=== PATIENT | male | born 1940 | race Caucasian/White ===

== ENCOUNTER → 2016-10-22 | Outpatient (CLI) | payer BC ==
[~2016-10-22] MED LIST: ALBU1AER9 INH; ALLO100T PO; ALPR0.25 PO; AMLH/550 PO; AMOX500C3 PO; ANT25 PO; ASCO10003 PO; ASPI81TA25 PO; CARB0.5D28 OPB; EPP3/2 IM; FEXO1TAB49 PO; FINA5TAB4 PO; FLUT0.15 NAE; MECL1TAB42 PO; METH500T3 PO; METR0.7527 TOP; MULTTAB58 PO; NIAC1TAB PO; OMEG10007 PO; POTA20TA16 PO; PRAV20TA2 PO; SULI200T4 PO
--- NOTE | 2016-10-22 10:40 | DIAGNOSTIC IMAGING REPORT ---
RENAL ULTRASOUND CLINICAL HISTORY: Right flank pain. COMPARISON STUDY: Renal ultrasound September 11, 2015 [place] TECHNIQUE: Sonography of the kidneys and the urinary bladder was performed. FINDINGS: The right kidney measures 11 x 5.3 x 4.6 cm and the left measures 12.3 x 5.7 x 5.6 cm. There is no hydronephrosis. Renal echogenicity, size and cortical thickness are within normal limits. No renal calculi or masses identified by sonography. The bladder suboptimally assessed due to underdistention. IMPRESSION: Unremarkable sonographic appearance of the kidneys. No hydronephrosis. Electronically signed by: Celio Lynn M.D. 10/22/2016 10:39 AM Dictated Date/Time: 10/22/2016 10:38 AM
== END | disposition home or self-care (01) ==
LOC: C.ULTR 10:04
PROVIDERS: ATTEND Internal Medicine
DX: R10.9 Unspecified abdominal pain (principal)

== ENCOUNTER → 2017-08-14 | Outpatient (CLI) | payer BC ==
[~2017-08-14] MED LIST changes: +ASPCH81X PO; +DIPH25CA5 PO; +FLUO0.0566 TOP; +HYDR2.5O TOP; +KETO0.0216 OP; +MELATAB2 PO
[2017-08-14 13:28] LABS: PARTIAL THROMBOPLASTIN RATIO 1.2; PROTHROMBIN TIME (PATIENT) 10.7 SECONDS (9.0-12.0)
== END | disposition home or self-care (01) ==
LOC: C.LAB 12:18
PROVIDERS: ATTEND Physician Assistant
DX: I35.0 Nonrheumatic aortic (valve) stenosis (principal)

== ENCOUNTER → 2017-08-19 | Day surgery (SDC) | payer BC ==
[~2017-08-19] VITALS: Ht 170.2 cm; Wt 91.0 kg
[~2017-08-19] MED LIST changes: +ACETAMINOPHEN 325 MG TAB PO PRN; +ATROPINE SULFATE 0.1 MG/ML 5ML SYR IV PRN; +FENTANYL CITRATE INJ 50 MCG/1 ML 2 ML VIAL ONE; +HEPARIN SOD (PORCINE) 1000 UNIT/ML 10 ML VIAL ONE; +MIDAZOLAM HCL 1 MG/ML 2ML VIAL ONE; +NITROGLYCERIN 0.4 MG SL PER TAB CHARGE SL PRN; +NITROGLYCERIN/D5W 100MCG/ML 20ML SYR ONE; +NiCARDipine HCL INJ 2.5 MG/ML 10 ML AMP ONE; +SODIUM CHLORIDE 0.9% 1000ML 1,000 ML IV SCH; +SODIUM CHLORIDE 0.9% 1000ML 250 ML IV PRN
[2017-08-19 07:28] VITALS: Ht 170.2 cm; Wt 91.0 kg
[2017-08-19 07:29] VITALS: BP 135/59; PULSE 59; TEMP 36.6; O2SAT 98
--- NOTE | 2017-08-19 09:37 | History & Physical Bridge Note ---
H&P Re-Evaluation Bridge Note: I have examined the patient, reviewed the History & Physical and in the interval since the performance of the History & Physical I have noted the following changes of clinical significance: No changes noted
--- NOTE | 2017-08-19 12:24 | Discharge Instructions ---
Discharge Instructions Procedure Procedure Date: Aug 19, 2017. Reason for Visit: Severe Aortic Valve Stenosis * To Do. Discharge Discharge Date: Aug 19, 2017. Discharge Diagnosis: aortic stenosis Last Recorded Wt (Kilograms): 91 Anesthesia Post Anesthesia Instructions: If you have had General Anesthesia or IV Sedation: * Do not drive today. * Resume driving when surgeon permits. * Do not make important decisions or sign legal documents today. * Call surgeon for: 1. Temperature elevations greater than 101 degrees F. 2. Uncontrollable pain. 3. Excessive bleeding. 4. Persistent nausea and vomiting. 5. Medication intolerance (nausea, vomiting or rash). * For nausea and vomiting use only clear liquids such as: tea, soda, bouillon until nausea subsides, then gradually increase diet as tolerated. * If you have any concerns or questions, call your surgeon's office. If physician is unavailable and it is an emergency, call 911 or go to the nearest emergency room. Instructions Activity Recommendations: limitations as noted below Recommended Home Diet: resume previous diet Allergies: Coded Allergies: No Known Allergies (Unverified , 01/10/16) Follow Up Additional Instructions: ACTIVITY RECOMMENDATIONS: Excess manipulation of the wrist should be avoided for the next 24-48 hours. * No lifting over 2 pounds (approximately a 1/2 gallon of milk) with the utilized arm for 24 hours. * No strenuous activity such as bowling or tennis for 3 days. * Keep the site of the procedure covered with a bandage for 24 hours. *You may shower the day after the procedure. Do not take a tub bath or submerge the puncture site in water for the next 3 days. *Do not operate any motorized equipment for 3 days. SPECIAL CARE INSTRUCTIONS: The site may be slightly bruised and sore following your procedure. Should any of the following occur, contact the Dr. who performed your procedure. 1. Redness/inflammation, swelling, chills, or fever, or colored drainage at procedure site within 3-7 days after your procedure. 2. Coldness, discoloration, ongoing numbness, severe pain, or swelling. Expect mild tingling of hand and tenderness at the puncture site for up to three days. If this persists beyond three days, or other symptoms develop, notify the DrDevon who performed your procedure. BLEEDING: If the procedure site on your wrist begins to bleed, do not panic 1. Place 1 or 2 fingers firmly just slightly above the insertion site to stop the bleeding. You may be able to feel your pulse as you hold pressure. 2. Lift your finger after 5 minutes to see if the bleeding has stopped. 3. Once the bleeding has stopped, gently wipe the wrist area clean with a bandage. * If the bleeding from your wrist does not stop after 10 minutes, or if there is a large amount of bleeding or spurting, call 911 (do not drive yourself to the hospital). SKIN IRRITATION: * You may experience some redness and/or swelling in the area where radiation was administered. If any skin irritation occurs, please contact your family physician. FOLLOW UP VISIT: Keep any scheduled doctor appointments. Follow-up with: Dr Anderson as scheduled Lu Adkins Recommendations: Call your doctor if: * Temperature above 101 degrees * Pain not relieved by pain medicine ordered * There is increased drainage or redness from any incision * You have any unanswered questions or concerns. Your Doctors Instructions noted above were prepared by provider Jesse Guerrero. Patient Signature Section: Patient Instructions Signature Page Perry Snow Patient (or Guardian) Signature/Date: I have read and understand the instructions given to me by my caregivers. Caregiver/RN/Doctor Signature/Date: The above-named patient and/or guardian has received patient instructions on this date. + Original Patient Signature Page (only) stays with chart. Please make copy for patient.
[2017-08-19 12:30] VITALS: BP 128/65; PULSE 50; O2SAT 98
--- NOTE | 2017-08-20 11:05 | [facility] Post Operative Brief Note ---
Preliminary Procedure Note Procedure Date Aug 20, 2017. Pre-Procedure Diagnosis Valvular Disease AUC Score 7 Post-Procedure Diagnosis Moderate CAD Procedure(s) Performed Coronary Angiography, Aortography Celery Cutter Dr. Jesse Guerrero [employer](s) Imtiaz Plascencia Estimated Blood Loss <15 cc Medication(s) Fentanyl (12.5 mcg IV), Heparin (5000u IV), Nicardipine (250mcg intraarterial after sheath insertion), Versed (1mg IV), Lidocaine 1% (local infiltration) Preliminary Findings Heavily calcified aortic valve on fluoroscopy Right dominant coronary anatomy LM mild calcification LAD 40-50% mid vessel LADD1 moderate sized bifurcating vessel with 80% inferior branch LCX mild irregularities RCA mild irregularities Aortic with mild dilation Recommendations valve replacement Specimens None Fluids (cc crystalloids) 134 Anesthesia Start 0856 End 929 Procedural Complication(s) None Disposition [employer]/Recovery
--- NOTE | 2017-08-20 12:25 | CARDIAC CATH REPORT ---
REFERRING PHYSICIAN: Julian Gilliam PA-C. PROCEDURE: Coronary angiography, aortic root angiography. INDICATIONS: Severe aortic stenosis, preoperative assessment. BRIEF CARDIAC HISTORY: The patient is a 76-year-old male with progressive calcific aortic valve disease, increasing symptoms recently and valves already not reaching surgical severity by recent echocardiogram. He was referred for diagnostic cardiac catheterization. ACCESS: Right radial artery. CATHETERS: A 6-[place] long glide sheath, 5-[place] brachial 3.5, 5-[place] JL 3.5, 5-[place] JL4, 5-[place] JR5, 6-[place] 3DRC. IV CONTRAST: 141 mL of Visipaque. IV FLUIDS: 134 mL normal saline. RADIATION EXPOSURE: 10.7 minutes fluoroscopy, 559 milligrays, DAP score 3888. SEDATION: Start time 8:56, end time 9:35. MEDICATIONS: Versed 1 mg IV, fentanyl 12.5 mcg IV. Local infiltration of access site with 1% Lidocaine Heparin 5000U IV Nicardipine 250 mcg intraarterial after sheath insertion MONITORING NURSE: Kylee Black RN. COMPLICATIONS: None. PROCEDURAL NOTES: There is moderate tortuosity of the proximal right subclavian with limited torque ability of catheters, though adequate access was gained with catheter use. RESULTS: Fluoroscopy of the aortic valve was heavy calcification of the valve leaflets with restricted mobility. CORONARY ANGIOGRAPHY: 1. Left main: Left main is relatively short and trifurcates to give rise to a tiny ramus intermedius, a moderately large type 3 left anterior descending and a large circumflex. Within the left main, there is no disease. 2. Left anterior descending: Left anterior descending is type 3 in distribution and gives rise to a moderately large bifurcating diagonal branch in its proximal third, then courses to terminate beyond the apex. Within the left anterior descending, there are mild diffuse luminal irregularities with a discrete 40%-50% narrowing at its mid vessel. The left anterior descending diagonal has disease at its level of bifurcation with disease extending into the origin of the inferior branch, narrowing it by 80% or greater. 3. Ramus intermedius: This is a trivial vessel and is free of disease. 4. Left circumflex: Left circumflex is large and consists of 2 marginal branches and a posterolateral branch. There are only mild luminal irregularities in the left circumflex. 5. Right coronary artery: The right coronary is large and dominant in distribution and gives rise to a right ventricular branch shortly after its origin and a posterior descending artery and posterior ventricular branch along the AV groove. There are mild irregularities in the right coronary artery most greatest in its proximal third. 6. LV angiography not performed. 7. Aortic root angiography: The aortic root was mildly dilated. There was mild aortic insufficiency. HEMODYNAMICS: Initial aortic root pressure was 99/44 with a mean of 65. Closing aortic root pressure was 99/49 with a mean of 69. FINAL IMPRESSION: 1. Heavy calcifications in the aortic valve on fluoroscopy. 2. Right dominant coronary anatomy. 3. Moderate coronary atherosclerosis with mild luminal irregularities of all vessels with a discrete 40%-50% narrowing within the mid left anterior descending and branch vessel narrowing of 80% with inferior branch of a bifurcating diagonal. 4. Mild aortic root dilatation. 5. Mild aortic insufficiency. [facility]
== END | disposition home or self-care (01) ==
LOC: C.CATH 06:49
PROVIDERS: ATTEND Internal Medicine Cardiovascular Disease
DX: I35.0 Nonrheumatic aortic (valve) stenosis (principal); I35.1 Nonrheumatic aortic (valve) insufficiency; R06.09 Other forms of dyspnea; R00.1 Bradycardia, unspecified; E78.5 Hyperlipidemia, unspecified; J45.909 Unspecified asthma, uncomplicated; N40.0 Benign prostatic hyperplasia without lower urinary tract symptoms; E66.9 Obesity, unspecified; M19.90 Unspecified osteoarthritis, unspecified site; Z87.442 Personal history of urinary calculi; Z80.42 Family history of malignant neoplasm of prostate; Z82.49 Family history of ischemic heart disease and other diseases of the circulatory system; Z79.82 Long term (current) use of aspirin

== ENCOUNTER → 2017-08-21 | Outpatient (CLI) | payer BC ==
[~2017-08-21] MED LIST changes: -ACETAMINOPHEN 325 MG TAB PO PRN; -ANT25 PO; -ATROPINE SULFATE 0.1 MG/ML 5ML SYR IV PRN; -FENTANYL CITRATE INJ 50 MCG/1 ML 2 ML VIAL ONE; -HEPARIN SOD (PORCINE) 1000 UNIT/ML 10 ML VIAL ONE; -MIDAZOLAM HCL 1 MG/ML 2ML VIAL ONE; -NITROGLYCERIN 0.4 MG SL PER TAB CHARGE SL PRN; -NITROGLYCERIN/D5W 100MCG/ML 20ML SYR ONE; -NiCARDipine HCL INJ 2.5 MG/ML 10 ML AMP ONE; -SODIUM CHLORIDE 0.9% 1000ML 1,000 ML IV SCH; -SODIUM CHLORIDE 0.9% 1000ML 250 ML IV PRN
[2017-08-21 15:16] LABS: ARTERIAL BLD GAS O2 SATURATION 92.2 % (90-95); ARTERIAL BLOOD GAS BASE EXCESS 1.6 mEq/L (-9-1.8); ARTERIAL BLOOD GAS HCO3 26 mmol/L (19-24); ARTERIAL BLOOD GAS PO2 63 mm/Hg (80-95); ARTERIAL BLOOD GAS pH 7.44 (7.35-7.45)
[2017-08-21 15:17] LABS: ALLEN TEST POS (POS); O2 ADMINISTRATION ROOM AIR
[2017-08-21 15:18] LABS: HEMATOCRIT 36.2 % (42-52); MEAN CELL VOLUME 87.4 fL (80-100); MEAN CORPUSCULAR HEMOGLOBIN 30.7 pg (25-34); MEAN CORPUSCULAR HGB CONC 35.1 g/dl (32-36); MEAN PLATELET VOLUME 9.2 fL (7.4-10.4); PLATELET COUNT 264 K/uL (130-400); RED BLOOD COUNT 4.14 M/uL (4.7-6.1); WHITE BLOOD COUNT 8.06 K/uL (4.8-10.8)
[2017-08-21 15:29] LABS: PROTHROMBIN TIME (PATIENT) 10.3 SECONDS (9.0-12.0)
[2017-08-21 15:52] LABS: ALT/SGPT 25 U/L (12-78); AST/SGOT 22 U/L (15-37); BLOOD UREA NITROGEN 23 mg/dl (7-18); BUN/CREATININE RATIO 22.9 (10-20); CALCIUM 8.9 mg/dl (8.5-10.1); CARBON DIOXIDE 25 mmol/L (21-32); CHLORIDE 104 mmol/L (98-107); GLUCOSE 88 mg/dl (70-99); POTASSIUM 4.1 mmol/L (3.5-5.1); SODIUM 135 mmol/L (136-145)
[2017-08-21 16:11] LABS: ALKALINE PHOSPHATASE 50 U/L (45-117); FERRITIN 266.6 ng/ml (8.0-388.0); TOTAL IRON BINDING CAPACITY 276 mcg/dl (250-450)
[2017-08-21 16:36] LABS: MANUAL MICROSCOPIC REQUIRED? NO; REVIEW REQ? NO; URINE APPEARANCE CLEAR (CLEAR); URINE BILIRUBIN NEG (NEG); URINE COLOR DK YELLOW; URINE NITRITE NEG (NEG); URINE PH 7.5 (4.5-7.5); URINE SPECIFIC GRAVITY 1.021 (1.000-1.030); UROBILINOGEN NEG (NEG)
[2017-08-22 06:37] LABS: ESTIMATED AVERAGE GLUCOSE 126 mg/dl; HA1C FLAG Normal (Normal)
== END | disposition home or self-care (01) ==
LOC: C.LAB 14:07
PROVIDERS: ATTEND Thoracic Surgery (Cardiothoracic Vascular Surgery)
DX: I35.0 Nonrheumatic aortic (valve) stenosis (principal); Z01.810 Encounter for preprocedural cardiovascular examination; I25.118 Atherosclerotic heart disease of native coronary artery with other forms of angina pectoris

== ENCOUNTER → 2017-09-15 | Outpatient (CLI) | payer BC ==
[~2017-09-15] MED LIST changes: +LPR25 PO; +LPT40 PO; +POTA-639 PO; -POTA20TA16 PO; +PSYL48.59 PO; +VNTHFA/IN INH; +WARF-246 PO; +WARF5TAB7 PO; +ZOLP5TAB PO
[2017-09-15 08:46] LABS: INR 1.7 (0.9-1.1)
== END ==
LOC: C.LABCC 08:22
PROVIDERS: ATTEND Internal Medicine
DX: I35.1 Nonrheumatic aortic (valve) insufficiency (principal)

== ENCOUNTER → 2017-09-22 | Outpatient (CLI) | payer BC ==
[~2017-09-22] MED LIST changes: -LPR25 PO; -LPT40 PO; -POTA-639 PO; +POTA20TA16 PO; -PSYL48.59 PO; -VNTHFA/IN INH; -WARF-246 PO; -WARF5TAB7 PO; -ZOLP5TAB PO
[2017-09-22 08:32] LABS: INR 1.9 (0.9-1.1)
== END ==
LOC: C.LABCC 07:51
PROVIDERS: ATTEND Internal Medicine
DX: I35.1 Nonrheumatic aortic (valve) insufficiency (principal)

== ENCOUNTER → 2017-09-30 | Outpatient (CLI) | payer BC ==
[2017-09-30 09:55] LABS: INR 2.3 (0.9-1.1)
== END ==
LOC: C.LABCC 08:36
PROVIDERS: ATTEND Internal Medicine
DX: Z95.2 Presence of prosthetic heart valve (principal)

== ENCOUNTER → 2017-10-08 | Outpatient (CLI) | payer BC ==
--- NOTE | 2017-10-16 08:56 | CODING QUERY NO DIAGNOSIS ---
TREATMENT RENDERED WITHOUT A DIAGNOSIS 39 To promote full compliance with coding requirements relating to patient care, physician participation is requested in all cases of manager hydraulic uncertainty. Please assist us with providing a diagnosis/symptom for the test(s) below: A diagnosis/symptom was not documented on your Order. A valid diagnosis/symptom is required to bill all insurances. Please remember that we are unable to code a diagnosis of rule out, probable, possible, questionable, or suspected. DOS 10/08/17 Tests that require a diagnosis: * PROTHROMBIN TIME DIAGNOSIS: Provider Signature: Date: Thank you Brianna Brink [employer] Information Management Once completed, please kindly fax back to [phone] For questions please call [phone]
== END | disposition home or self-care (01) ==
LOC: C.LAB 13:33
PROVIDERS: ATTEND Physician Assistant
DX: I48.91 Unspecified atrial fibrillation (principal)

== ENCOUNTER → 2017-10-14 | Outpatient (CLI) | payer BC ==
[2017-10-14 13:28] LABS: INR 3.4 (0.9-1.1)
== END | disposition home or self-care (01) ==
LOC: C.LAB 11:57
PROVIDERS: ATTEND Internal Medicine
DX: I48.0 Paroxysmal atrial fibrillation (principal)

== ENCOUNTER → 2017-10-21 | Outpatient (CLI) | payer BC | END | disposition home or self-care (01) | LOC: C.LAB 12:13 | PROVIDERS: ATTEND Physician Assistant | DX: I35.0 Nonrheumatic aortic (valve) stenosis (principal) ==

== ENCOUNTER → 2017-10-28 | Outpatient (CLI) | payer BC ==
[2017-10-28 13:18] LABS: INR 2.8 (0.9-1.1)
== END | disposition home or self-care (01) ==
LOC: C.LAB 12:06
PROVIDERS: ATTEND Physician Assistant
DX: I35.0 Nonrheumatic aortic (valve) stenosis (principal)

== ENCOUNTER → 2017-11-04 | Outpatient (CLI) | payer BC ==
[2017-11-04 16:38] LABS: BASO % 0.2 %; BASO ABS # 0.01 K/uL (0-0.2); EOS % 2.8 %; EOS ABS # 0.18 K/uL (0-0.5); HEMATOCRIT 32.8 % (42-52); IG# 0.03 K/uL (0.00-0.02); LYMPH ABS # 2.22 K/uL (1.2-3.4); MEAN CELL VOLUME 84.3 fL (80-100); MEAN CORPUSCULAR HEMOGLOBIN 28.3 pg (25-34); MEAN CORPUSCULAR HGB CONC 33.5 g/dl (32-36); MEAN PLATELET VOLUME 9.2 fL (7.4-10.4); MONO % 12.3 %; MONO ABS # 0.78 K/uL (0.11-0.59); NEUT % 49.2 %; NEUT ABS # 3.12 K/uL (1.4-6.5); PLATELET COUNT 288 K/uL (130-400); RED CELL DISTRIBUTION WIDTH CV 13.4 % (11.5-14.5); RED CELL DISTRIBUTION WIDTH SD 40.4 fL (36.4-46.3); WHITE BLOOD COUNT 6.34 K/uL (4.8-10.8)
--- NOTE | 2017-11-04 17:00 | DIAGNOSTIC IMAGING REPORT ---
TWO VIEW CHEST CLINICAL HISTORY: Pleural effusion. Recent cardiac surgery. FINDINGS: PA and lateral chest radiographs are obtained. No prior studies are available for comparison at the time of dictation. A 2-lead cardiac pacemaker partially obscures the left upper chest. Leads project over the right atrial appendage and the right ventricle. The patient is status post midline sternotomy. There is evidence of cardiac valve surgery. The heart is enlarged and there is atherosclerotic calcification of the thoracic aorta. No airspace consolidation or pleural effusion is identified. There is mild elevation right hemidiaphragm with associated atelectasis. There is no pneumothorax. The skeletal structures are osteopenic. The bony thorax appears intact. IMPRESSION: 1. Cardiomegaly and cardiac pacemaker as above. There is no radiographic evidence of congestive failure. 2. No airspace consolidation or pleural effusion is identified. Electronically signed by: Kris Millard M.D. 11/04/2017 4:58 PM Dictated Date/Time: 11/04/2017 4:57 PM
[2017-11-04 17:04] LABS: BLOOD UREA NITROGEN 23 mg/dl (7-18); CALCIUM 8.8 mg/dl (8.5-10.1); CARBON DIOXIDE 27 mmol/L (21-32); CREATININE 1.24 mg/dl (0.60-1.40); GLUCOSE 105 mg/dl (70-99); SODIUM 137 mmol/L (136-145)
== END | disposition home or self-care (01) ==
LOC: C.RAD 15:53
PROVIDERS: ATTEND Physician Assistant
DX: I97.89 Other postprocedural complications and disorders of the circulatory system, not elsewhere classified (principal); I48.91 Unspecified atrial fibrillation; Z95.2 Presence of prosthetic heart valve; E78.5 Hyperlipidemia, unspecified; I51.7 Cardiomegaly; Z95.0 Presence of cardiac pacemaker

== ENCOUNTER → 2017-11-11 | Outpatient (CLI) | payer BC ==
[2017-11-11 12:16] LABS: INR 2.5 (0.9-1.1)
== END | disposition home or self-care (01) ==
LOC: C.LAB 11:39
PROVIDERS: ATTEND Internal Medicine
DX: I48.0 Paroxysmal atrial fibrillation (principal)

== ENCOUNTER 2017-12-02 15:39 | Inpatient (IN) | payer OTHER, BC ==
[~2017-12-02] VITALS: Ht 172.7 cm; Wt 89.9 kg
[~2017-12-02 15:39] MED LIST changes: -ALLO100T PO; -ALPR0.25 PO; -AMOX500C3 PO; -ASPI81TA25 PO; -EPP3/2 IM; -FEXO1TAB49 PO; -FINA5TAB4 PO; -METH500T3 PO; -METR0.7527 TOP; -MULTTAB58 PO
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
[2017-12-02] MEDS ORDERED: LPT40 PO (16:40)
[2017-12-02] MEDS ORDERED: VNTHFA/IN INH (16:40)
[2017-12-02] MEDS ORDERED: LPR25 PO (16:40)
[2017-12-02] MEDS ORDERED: WARF-246 PO (16:42)
[2017-12-02 16:47] LABS: BASO % 0.3 %; BASO ABS # 0.02 K/uL (0-0.2); EOS % 2.3 %; EOS ABS # 0.16 K/uL (0-0.5); HEMATOCRIT 36.2 % (42-52); IG# 0.02 K/uL (0.00-0.02); LYMPH ABS # 1.55 K/uL (1.2-3.4); MEAN CELL VOLUME 83.4 fL (80-100); MEAN CORPUSCULAR HEMOGLOBIN 27.6 pg (25-34); MEAN CORPUSCULAR HGB CONC 33.1 g/dl (32-36); MEAN PLATELET VOLUME 9.1 fL (7.4-10.4); MONO % 11.4 %; NEUT % 63.7 %; NEUT ABS # 4.48 K/uL (1.4-6.5); PLATELET COUNT 273 K/uL (130-400); RED CELL DISTRIBUTION WIDTH CV 13.9 % (11.5-14.5); RED CELL DISTRIBUTION WIDTH SD 42.5 fL (36.4-46.3); WHITE BLOOD COUNT 7.03 K/uL (4.8-10.8)
[2017-12-02 17:00] LABS: INR 2.4 (0.9-1.1); PTT PATIENT 39.8 SECONDS (21.0-31.0)
[2017-12-02] MEDS ORDERED: WARF5TAB7 PO (17:00)
[2017-12-02] MEDS ORDERED: PSYL48.59 PO (17:01)
[2017-12-02 17:03] LABS: ALBUMIN 3.6 gm/dl (3.4-5.0); CREATININE 1.17 mg/dl (0.60-1.40)
[2017-12-02 17:08] LABS: CKMB 2.3 ng/ml (0.5-3.6); TOTAL PROTEIN 7.7 gm/dl (6.4-8.2)
--- NOTE | 2017-12-02 17:20 | DIAGNOSTIC IMAGING REPORT ---
CHEST ONE VIEW PORTABLE HISTORY: Atypical CHEST PAIN COMPARISON: Chest 11/04/2017. FINDINGS: Left-sided dual-chamber pacemaker. The leads are intact. The heart remains top normal in size. Poststernotomy changes and an aortic valve prosthesis. No pneumothorax. No pleural effusions. The lungs are clear. No evidence for pulmonary edema. IMPRESSION: No significant change compared to the prior study. No acute process. Electronically signed by: Bassam Keita M.D. 12/02/2017 5:19 PM Dictated Date/Time: 12/02/2017 5:18 PM
[2017-12-02] MEDS ORDERED: ONDANSETRON INJ 2 MG/ML 2 ML VIAL IV PRN (17:45)
[2017-12-02] MEDS ORDERED: EPINEPHRINE ADULT AUTO-INJECT 0.3 MG SYR IM SCH (17:45)
[2017-12-02] MEDS ORDERED: POLYETHYLENE (MIRALAX) 17 GM PACK PO PRN (17:45)
[2017-12-02] MEDS ORDERED: ALBUTEROL HFA 8 GM INHALER INH PRN (17:45)
[2017-12-02] MEDS ORDERED: NITROGLYCERIN 0.4 MG SL PER TAB CHARGE SL PRN (17:45)
[2017-12-02] MEDS ORDERED: MECLIZINE HCL 25 MG TAB PO PRN (17:45)
[2017-12-02] MEDS ORDERED: ALPRAZOLAM 0.25 MG TAB PO PRN (17:45)
[2017-12-02] MEDS ORDERED: MAGNESIUM HYDROXIDE SUSP 30 ML UDC PO PRN (17:45)
[2017-12-02] MEDS ORDERED: ALUMINUM/MAGNESIUM/SIMETH (MAALOX MAX) 30 ML UDC PO PRN (17:45)
[2017-12-02] MEDS ORDERED: ACETAMINOPHEN 325 MG TAB PO PRN (17:45)
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
[2017-12-02] MEDS ORDERED: IV FLUIDS COMPLETED PRN (18:30)
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
[2017-12-02 19:51] VITALS: BP 148/80; PULSE 59; TEMP 36.5; Ht 172.7 cm; Wt 89.9 kg
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
[2017-12-02 20:51] VITALS: BP 112/68; PULSE 59
[2017-12-02] MEDS: METOPROLOL TARTRATE 25 MG TAB PO SCH (20:52)
[2017-12-02] MEDS: ATORVASTATIN 40 MG TAB PO SCH (20:53)
[2017-12-02] MEDS ORDERED: AMOX500C3 PO (22:59)
[2017-12-02] MEDS ORDERED: METR0.7527 TOP (22:59)
[2017-12-02] MEDS ORDERED: FEXO1TAB49 PO (22:59)
[2017-12-02] MEDS ORDERED: EPP3/2 IM (22:59)
[2017-12-02] MEDS ORDERED: MULTTAB58 PO (22:59)
[2017-12-02] MEDS ORDERED: ALLO100T PO (22:59)
[2017-12-02] MEDS ORDERED: METH500T3 PO (22:59)
[2017-12-02] MEDS ORDERED: ALPR0.25 PO (22:59)
[2017-12-02] MEDS ORDERED: FINA5TAB4 PO (22:59)
[2017-12-02] MEDS ORDERED: ASPI81TA25 PO (22:59)
[2017-12-02 23:55] VITALS: BP 145/80; PULSE 56; TEMP 36.4; O2SAT 96
[2017-12-03] VITALS (7 sets, daily range): BP systolic 107–146; BP diastolic 62–80; PULSE 54–60; TEMP 36.3–36.7; O2SAT 92–97
[2017-12-03 05:44] LABS: HEMATOCRIT 34.7 % (42-52); HEMOGLOBIN 11.7 g/dL (14.0-18.0); MEAN CELL VOLUME 82.8 fL (80-100); MEAN CORPUSCULAR HEMOGLOBIN 27.9 pg (25-34); MEAN CORPUSCULAR HGB CONC 33.7 g/dl (32-36); MEAN PLATELET VOLUME 9.1 fL (7.4-10.4); PLATELET COUNT 231 K/uL (130-400); RED CELL DISTRIBUTION WIDTH CV 13.9 % (11.5-14.5); RED CELL DISTRIBUTION WIDTH SD 42.4 fL (36.4-46.3)
[2017-12-03 06:12] LABS: BLOOD UREA NITROGEN 20 mg/dl (7-18); CALCIUM 8.9 mg/dl (8.5-10.1); CARBON DIOXIDE 27 mmol/L (21-32); CREATININE 1.09 mg/dl (0.60-1.40); GLUCOSE 97 mg/dl (70-99); POTASSIUM 3.9 mmol/L (3.5-5.1); SODIUM 137 mmol/L (136-145)
[2017-12-03] MEDS: FEXOFENADINE HCL 180 MG TAB PO SCH (08:27)
[2017-12-03] MEDS: FLUTICASONE PROPIONATE NA SPR 16 GM BTL NAE SCH (08:27)
[2017-12-03] MEDS: MULTIVITAMIN TAB PO SCH (08:27)
[2017-12-03] MEDS: PSYLLIUM 58.6% PWD PACK S\\F PO SCH (08:27)
[2017-12-03] MEDS: FINASTERIDE 5 MG TAB PO SCH (08:27)
[2017-12-03] MEDS: ALLOPURINOL 100 MG TAB PO SCH (08:27)
[2017-12-03] MEDS: ASPIRIN 81 MG ECTAB PO SCH (08:27)
[2017-12-03] MEDS: METOPROLOL TARTRATE 25 MG TAB PO SCH ×2 (08:27→21:07)
[2017-12-03] MEDS: METRONIDAZOLE 0.75% TOPICAL GEL 45 GM TUBE TOP SCH (08:28)
[2017-12-03] MEDS ORDERED: EPINEPHRINE ADULT AUTO-INJECT 0.3 MG SYR IM PRN (11:00)
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
--- NOTE | 2017-12-03 11:07 | ECHOCARDIOGRAM REPORT ---
*NOTICE TO RECEIVING [employer] [employer] [facility] This information is strictly Confidential and protected under [place] law. [place] law prohibits you from making any further disclosure of this information unless further disclosure is expressly permitted by the written consent of the person to whom it pertains or is authorized by law. A general authorization for the release of medical or other information is not sufficient for this purpose. Hospital accepts no responsibility if the information is made available to any other person, INCLUDING THE PATIENT. Interpretation Summary * Name: ELDA MARIE Study Date: 12/03/2017 07:39 AM BP: 146/80 mmHg * Patient Location: [facility]\S\N276\S\1 HR: 60 * : 1940 (M/d/yyy) Gender: Male Height: 67 in * Age: 76 yrs Ethnicity: [place] Weight: 205 lb * Ordering Physician: Sarah Vidal * Referring Physician: Hugo Roach D.O. * Performed By: Julien Elkins RCS * * Reason For Study: Syncope * BSA: 2.0 m2 * The study was technically adequate. * Compared to prior study, changes are noted. * -- Conclusions -- * Left ventricular systolic function is normal. * Ejection Fraction = 55-60%. * Septal and apical wall motion consistent with pacemaker activation. * There is a bioprosthetic aortic valve. * The gradient is normal for this prosthetic aortic valve. * No significant bioprosthetic valve regurgitation. * There is mild tricuspid regurgitation. * Doppler findings do not suggest pulmonary hypertension. * Grade I diastolic dysfunction, (abnormal relaxation pattern). Procedure Details * A complete two-dimensional transthoracic echocardiogram was performed (2D, M-mode, Doppler and color flow Doppler). Left Ventricle * The left ventricle is normal in size. * There is normal left ventricular wall thickness. * Left ventricular systolic function is normal. * Ejection Fraction = 55-60%. * Apical wall motion abnormality may reflect pacemaker activation. * Septal and apical wall motion consistent with pacemaker activation. Right Ventricle * The right ventricle is normal size. * The right ventricular systolic function is normal as assessed by tricuspid annular plane systolic excursion (TAPSE) (normal >1.5 cm). Atria * The left atrium is mildly dilated. * Right atrial size is normal. * There is no evidence of atrial septal defect, but resolution does not allow assessment for a patent foramen ovale. Mitral Valve * The mitral valve is normal. * There is no mitral valve stenosis. * Significant mitral regurgitation is absent. Tricuspid Valve * The tricuspid valve is normal. * There is no tricuspid stenosis. * There is mild tricuspid regurgitation. * Doppler findings do not suggest pulmonary hypertension. Aortic Valve * There is a bioprosthetic aortic valve. * The gradient is normal for this prosthetic aortic valve. * No significant bioprosthetic valve regurgitation. Pulmonic Valve * The pulmonary valve is not well seen, but the Doppler examination is normal without significant regurgitation or stenosis. Great Vessels * The aortic root is normal size. Pericardium/Pleural * There is no pericardial effusion. Great Vessels * Normal inferior vena cava diameter and respiratory variation suggests normal central venous pressure. Left Ventricular Diastolic Function * Grade I diastolic dysfunction, (abnormal relaxation pattern). MMode 2D Measurements and Calculations IVSd 1.1 cm IVSs 1.3 cm LVIDd 4.8 cm LVIDs 3.1 cm LVPWd 1.0 cm LVPWs 1.4 cm IVS/LVPW 1.1 FS 35.2 % EDV(Teich) 108.8 ml ESV(Teich) 38.6 ml EF(Teich) 64.5 % EDV(cubed) 112.2 ml ESV(cubed) 30.5 ml EF(cubed) 72.8 % % IVS thick 19.3 % % LVPW thick 33.5 % LV mass(C)d 185.5 grams LV mass(C)dI 90.8 grams/m\S\2 LV mass(C)s 137.1 grams LV mass(C)sI 67.1 grams/m\S\2 SV(Teich) 70.1 ml SI(Teich) 34.3 ml/m\S\2 SV(cubed) 81.7 ml SI(cubed) 40.0 ml/m\S\2 Ao root diam 3.0 cm Ao root area 6.9 cm\S\2 LA dimension 4.7 cm asc Aorta Diam 3.2 cm LA/Ao 1.6 EDV(MOD-sp4) 139.0 ml ESV(MOD-sp4) 66.0 ml EF(MOD-sp4) 52.5 % EDV(MOD-sp2) 121.0 ml ESV(MOD-sp2) 56.0 ml EF(MOD-sp2) 53.7 % SV(MOD-sp4) 73.0 ml SI(MOD-sp4) 35.7 ml/m\S\2 SV(MOD-sp2) 65.0 ml SI(MOD-sp2) 31.8 ml/m\S\2 Doppler Measurements and Calculations MV E max kimberley 79.5 cm/sec MV A max kimberley 132.3 cm/sec MV E/A 0.60 MV P1/2t max kimberley 94.5 cm/sec MV P1/2t 95.8 msec MVA(P1/2t) 2.3 cm\S\2 MV dec slope 288.7 cm/sec\S\2 MV dec time 0.38 sec Ao V2 max 189.8 cm/sec Ao max PG 14.4 mmHg Ao max PG (full) 9.3 mmHg Ao V2 mean 123.2 cm/sec Ao mean PG 7.0 mmHg Ao mean PG (full) 4.4 mmHg Ao V2 VTI 38.2 cm LV V1 max PG 5.1 mmHg LV V1 mean PG 2.6 mmHg LV V1 max 112.9 cm/sec LV V1 mean 76.5 cm/sec LV V1 VTI 23.7 cm SV(Ao) 262.3 ml SI(Ao) 128.4 ml/m\S\2 PA V2 max 87.1 cm/sec PA max PG 3.0 mmHg TR max kimberley 230.5 cm/sec
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
[2017-12-03] MEDS ORDERED: WARFARIN SOD 5 MG TAB PO SCH (16:00)
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
--- NOTE | 2017-12-03 20:26 | Progress Note ---
Progress Note Date of Service Dec 03, 2017. Progress Note On-call attending note: Received call from MRI The verified with [employer] auto claim representative, patient's pacemaker is not compatible for MRI scan MRI of brain Combo D/carina
[2017-12-03] MEDS: ATORVASTATIN 40 MG TAB PO SCH (21:06)
[2017-12-04] VITALS (7 sets, daily range): BP systolic 121–126; BP diastolic 70–77; PULSE 58–66; TEMP 36.4–36.9; O2SAT 90–97
[2017-12-04 07:16] LABS: INR 1.5 (0.9-1.1)
[2017-12-04 07:36] LABS: CALCIUM 8.7 mg/dl (8.5-10.1); CREATININE 1.14 mg/dl (0.60-1.40); POTASSIUM 3.9 mmol/L (3.5-5.1)
[2017-12-04] MEDS: FLUTICASONE PROPIONATE NA SPR 16 GM BTL NAE SCH (07:44)
[2017-12-04] MEDS: ASPIRIN 81 MG ECTAB PO SCH (07:44)
[2017-12-04] MEDS: FEXOFENADINE HCL 180 MG TAB PO SCH (07:44)
[2017-12-04] MEDS: PSYLLIUM 58.6% PWD PACK S\\F PO SCH (07:45)
[2017-12-04] MEDS: MULTIVITAMIN TAB PO SCH (07:45)
[2017-12-04] MEDS: METOPROLOL TARTRATE 25 MG TAB PO SCH (07:45)
[2017-12-04] MEDS: METRONIDAZOLE 0.75% TOPICAL GEL 45 GM TUBE TOP SCH (07:46)
[2017-12-04] MEDS: ALLOPURINOL 100 MG TAB PO SCH (07:46)
[2017-12-04] MEDS: FINASTERIDE 5 MG TAB PO SCH (07:46)
[2017-12-04] MEDS ORDERED: OPTIRAY 320 IV PRN (09:15)
--- NOTE | 2017-12-04 09:43 | DIAGNOSTIC IMAGING REPORT ---
CT ANGIOGRAPHY HEAD COMBO CT DOSE: 676.49 mGy.cm CLINICAL HISTORY: Syncopal episode. TECHNIQUE: Unenhanced images were obtained to the brain. CT angiography was then performed in a dynamic helical fashion during intravenous administration 119 cc Optiray 320. MIP imaging was performed. A dose lowering technique was utilized adhering to the principles of ALARA. COMPARISON STUDY: Noncontrast head CT dated 12/02/2017 FINDINGS: The noncontrast study, no intra or extra-axial mass lesions are visualized. There is no CT evidence of acute cortical infarction. There is no midline shift. There is no acute hemorrhage. There is no hydrocephalus. There are no lesion suspicious for aneurysm. There are no major intracranial branch occlusions. There is no evidence of dural venous sinus thrombosis. IMPRESSION: Unremarkable CT angiography of the brain. Electronically signed by: Art Loera M.D. 12/04/2017 9:41 AM Dictated Date/Time: 12/04/2017 9:36 AM
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
[2017-12-04] MEDS ORDERED: ZOLP5TAB PO (13:57)
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
[2017-12-04] MEDS ORDERED: WARFARIN SOD 2.5 MG TAB PO SCH (16:00)
== END 2017-12-04 15:51 | disposition home or self-care (01) | DRG 312 ==
LOC: C.EDB 15:41 → C.MED 17:32 → ENRESERV 18:01 → OBSVTOIN 12-04 07:52
PROVIDERS: ADMIT Hospitalist; ATTEND Hospitalist
DX: R55 Syncope and collapse (principal); G47.00 Insomnia, unspecified; I10 Essential (primary) hypertension; E78.5 Hyperlipidemia, unspecified; I48.0 Paroxysmal atrial fibrillation; N40.0 Benign prostatic hyperplasia without lower urinary tract symptoms; H81.09 Meniere's disease, unspecified ear; E66.9 Obesity, unspecified; I25.10 Atherosclerotic heart disease of native coronary artery without angina pectoris; J45.909 Unspecified asthma, uncomplicated; F41.9 Anxiety disorder, unspecified; Z79.01 Long term (current) use of anticoagulants; Z79.82 Long term (current) use of aspirin; Z79.899 Other long term (current) drug therapy; Z95.0 Presence of cardiac pacemaker; Z80.42 Family history of malignant neoplasm of prostate; V47.5XXA Car driver injured in collision with fixed or stationary object in traffic accident, initial encounter; Z95.1 Presence of aortocoronary bypass graft

== ENCOUNTER → 2018-04-26 | Outpatient (CLI) | payer BC ==
[~2018-04-26] MED LIST changes: -ALBU1AER9 INH; +ALLO100T PO; +ALPR0.25 PO; -AMLH/550 PO; +AMOX500C3 PO; -ASCO10003 PO; -ASPCH81X PO; +ASPI81TA25 PO; -CARB0.5D28 OPB; +EPP3/2 IM; +FEXO1TAB49 PO; +FINA5TAB4 PO; -FLUO0.0566 TOP; -HYDR2.5O TOP; -KETO0.0216 OP; +LPR25 PO; +LPT40 PO; -MELATAB2 PO; +METR0.7527 TOP; +MULTTAB58 PO; -NIAC1TAB PO; -OMEG10007 PO; -POTA20TA16 PO; -PRAV20TA2 PO; +PSYL48.59 PO; -SULI200T4 PO; +VNTHFA/IN INH; +WARF-246 PO; +WARF5TAB7 PO; +ZOLP5TAB PO
== END | disposition home or self-care (01) ==
LOC: C.LAB 10:42
PROVIDERS: ATTEND Physician Assistant Medical
DX: G47.61 Periodic limb movement disorder (principal)

== ENCOUNTER 2018-05-08 19:44 | Emergency (ER) | payer BC ==
[~2018-05-08] VITALS: Ht 170.2 cm; Wt 92.3 kg
[2018-05-08 19:47] VITALS: Ht 170.2 cm; Wt 92.3 kg
[2018-05-08] MEDS ORDERED: ACETAMINOPHEN 500 MG TAB PO STA (19:58)
[2018-05-08] MEDS ORDERED: SODIUM CHLORIDE 0.9% 1000ML 1,000 ML IV STA (19:58)
[2018-05-08 20:29] LABS: BASO % 0.2 %; BASO ABS # 0.02 K/uL (0-0.2); EOS % 0.5 %; EOS ABS # 0.04 K/uL (0-0.5); HEMATOCRIT 41.7 % (42-52); HEMOGLOBIN 14.5 g/dL (14.0-18.0); IG# 0.04 K/uL (0.00-0.02); LYMPH % 16.2 %; LYMPH ABS # 1.36 K/uL (1.2-3.4); MEAN CELL VOLUME 86.5 fL (80-100); MEAN CORPUSCULAR HEMOGLOBIN 30.1 pg (25-34); MEAN CORPUSCULAR HGB CONC 34.8 g/dl (32-36); MEAN PLATELET VOLUME 9.4 fL (7.4-10.4); MONO % 15.6 %; MONO ABS # 1.31 K/uL (0.11-0.59); NEUT ABS # 5.62 K/uL (1.4-6.5); PLATELET COUNT 215 K/uL (130-400); RED CELL DISTRIBUTION WIDTH CV 13.9 % (11.5-14.5); RED CELL DISTRIBUTION WIDTH SD 43.8 fL (36.4-46.3); WHITE BLOOD COUNT 8.39 K/uL (4.8-10.8)
--- NOTE | 2018-05-08 20:32 | EMERGENCY ROOM VISIT NOTE ---
History Report prepared by Sam: Linus Ware Under the Supervision of: Dr. Cj Reece M.D. First contact with patient: 19:51 Chief Complaint: FEVER Stated Complaint: CONSTANT URINATION,TEMPERATURE 102.4 History of Present Illness The patient is a 77 year old male who presents to the Emergency Room with complaints of a worsening fever that is now at about 102.4 degrees Fahrenheit. The patient states the fever started two days ago and he has not taken any Tylenol or Motrin to relieve it. The patient also complains of vomiting and diarrhea as well as a productive cough. He also notes mild burning when urinating. The patient called his PCP and they told him to come here. He had his aortic valve replaced and a pacemaker put in August 2017. The patient denies any trouble breathing or chest pain. Source of History: patient Onset: 2 days ago Position: other (generalized) Symptom Intensity: 102.4 Quality: other (Fever) Timing: worsening Associated Symptoms: + fevers, + cough, + vomiting, + diarrhea, + urinary symptoms Review of Systems See HPI for pertinent positives and negatives. A total of ten systems were reviewed and were otherwise negative. Past Medical & Surgical Medical Problems: (1) Anxiety (2) Asthma (3) CALCULUS OF KIDNEY (4) Complete heart block (5) HTN (hypertension) (6) Hyperlipidemia (7) HYPERLIPIDEMIA NEC/NOS (8) Hypokalemia (9) Kidney stone (10) Meniere's disease (11) Mild asthma (12) Pacemaker (13) Paroxysmal atrial fibrillation (14) Syncope (15) Vertigo Surgical Problems: (1) History of thoracotomy (2) Hx of aortic valve repair (3) Hx of CABG (4) Hx of cardiac pacemaker Family History TIAs Social History Smoking Status: Never Smoker Alcohol Use: none Drug Use: none Marital Status: Housing Status: lives alone Occupation Status: retired Current/Historical Medications Scheduled Allopurinol (Zyloprim), 100 MG PO DAILY Amoxicillin (Amoxil), 2,000 MG PO UD Aspirin (Aspir-Low), 162 MG PO DAILY Atorvastatin (Lipitor), 40 MG PO QPM Epinephrine (Epipen), 0.3 MG IM UD Fexofenadine Hcl (Jaci Allergy), 180 MG PO DAILY Finasteride (Proscar), 5 MG PO DAILY Fluticasone Propionate (Nasal) (Flonase Allergy Relief), 2 SPRAYS ISABELLA DAILY Metoprolol Tartrate (Lopressor), 12.5 MG PO Q12 Metronidazole (Topical) (Metrogel), 1 APPLN TOP DAILY Multiple Vitamin (Multivitamin), 1 TAB PO DAILY Psyllium (Metamucil), 4 TSP PO DAILY Warfarin Sod (Jantoven), 5 MG PO 5XWK Warfarin Sodium (Warfarin Sodium), 2.5 MG PO MON&FRI Scheduled PRN Albuterol Hfa (Ventolin Hfa), 2-4 PUFF INH Q4 PRN for SOB/Wheezing Alprazolam (Xanax), 0.25 MG PO HS PRN for Anxiety Diphenhydramine Hcl (Benadryl), 50 MG PO Q4H PRN for PRN Meclizine Hcl (Meclizine Hcl), 25 MG PO TID PRN for VERTIGO Zolpidem Tartrate (Ambien), 1 TAB PO HS PRN for insomnia Allergies Coded Allergies: No Known Allergies (Unverified , 01/10/16) Physical Exam Vital Signs Date Time Temp Pulse Resp B/P (MAP) Pulse Ox O2 Delivery O2 Flow Rate FiO2 05/08/18 22:35 37.0 64 18 106/59 96 Room Air 05/08/18 19:47 37.9 87 18 106/65 96 Room Air Physical Exam Physical Exam GENERAL: He is oriented to person, place, and time. He appears well-developed and well-nourished. He does not appear distressed. HENT: Exam performed. Head: Normocephalic and atraumatic. Right Ear: External ear normal. No mastoid tenderness. Left Ear: External ear normal. No mastoid tenderness. Mouth/Throat: The oropharynx is clear and moist. No trismus in the jaw. No dental abscesses or uvula swelling. No oropharyngeal exudate or tonsillar abscesses. EYES: Conjunctivae and EOM are normal. Pupils are equal, round, and reactive to light. Right eye exhibits no discharge. Left eye exhibits no discharge. No scleral icterus. NECK: Normal range of motion. Neck supple. No JVD present. No spinous process tenderness present. No carotid bruit present. No rigidity. No tracheal deviation and normal range of motion present. No Brudzinski's sign and no Kernig 's sign noted. CV: Normal rate, regular rhythm, normal heart sounds and intact distal pulses. There is no peripheral edema. Palpable radial pulses bue. PULM/CHEST: Effort normal and breath sounds normal. No respiratory distress. No stridor. He has no wheezes. He has no rales. Chest Wall: He exhibits no tenderness. ABD: The abdomen is soft. Bowel sounds are normal. He has no distension. No mass is present. There is no tenderness. Pain to palpation in the suprapubic region. There is no rebound, no guarding, no Sommers's sign and no tenderness at McBurney's point. Rovsig negative. MUSC/SKEL: Normal range of motion. There is no peripheral edema, tenderness or deformity. LYMPH: No cervical adenopathy. NEURO: He is alert and oriented to person, place, and time. He has normal strength. No cranial nerve deficit or sensory deficit. Coordination and gait normal. GCS eye subscore is 4. GCS verbal subscore is 5. GCS motor subscore is 6. Cerebellar tests wnl. SKIN: Skin is warm and dry. He is not diaphoretic. PSYCH: He has a normal mood and affect. Behavior is normal. Judgment and thought content normal. Medical Decision & Procedures ER Provider Diagnostic Interpretation: Radiology results as stated below per my review and radiologist interpretation: CHEST 2 VIEWS ROUTINE CLINICAL HISTORY: Fever and cough COMPARISON STUDY: December 02, 2017 FINDINGS: There are postsurgical changes of a midline sternotomy. The heart is normal in size. There is an aortic valve prosthesis. There is a left subclavian dual-chamber central venous pacemaker. There is no failure. There is no focal pulmonary consolidation. There are no pleural effusions.[ IMPRESSION: No active disease in the chest. Electronically signed by: Art Loera M.D. 05/08/2018 8:48 PM Dictated Date/Time: 05/08/2018 8:47 PM Laboratory Results 05/08/18 20:17 Red Blood Count 4.82, Mean Corpuscular Volume 86.5, Mean Corpuscular Hemoglobin 30.1, Mean Corpuscular Hemoglobin Concent 34.8, Mean Platelet Volume 9.4, Neutrophils (%) (Auto) 67.0, Lymphocytes (%) (Auto) 16.2, Monocytes (%) (Auto) 15.6, Eosinophils (%) (Auto) 0.5, Basophils (%) (Auto) 0.2, Neutrophils # (Auto ) 5.62, Lymphocytes # (Auto) 1.36, Monocytes # (Auto) 1.31, Eosinophils # (Auto ) 0.04, Basophils # (Auto) 0.02 05/08/18 20:17 Test 05/08/18 20:15 05/08/18 20:17 Urine Color YELLOW Urine Appearance CLEAR (CLEAR) Urine pH 6.5 (4.5-7.5) Urine Specific [place] 1.011 (1.000-1.030) Urine Protein NEG (NEG) Urine Glucose (UA) NEG (NEG) Urine Ketones NEG (NEG) Urine Occult Blood TRACE (NEG) Urine Nitrite NEG (NEG) Urine Bilirubin NEG (NEG) Urine Urobilinogen NEG (NEG) Urine Leukocyte Esterase NEG (NEG) Urine WBC (Auto) 1-5 /hpf (0-5) Urine RBC (Auto) 0-4 /hpf (0-4) Urine Hyaline Casts (Auto) 0 /lpf (0-5) Urine Epithelial Cells (Auto) 0-5 /lpf (0-5) Urine Bacteria (Auto) NEG (NEG) White Blood Count 8.39 K/uL (4.8-10.8) Red Blood Count 4.82 M/uL (4.7-6.1) Hemoglobin 14.5 g/dL (14.0-18.0) Hematocrit 41.7 % (42-52) Mean Corpuscular Volume 86.5 fL (80-100) Mean Corpuscular Hemoglobin 30.1 pg (25-34) Mean Corpuscular Hemoglobin Concent 34.8 g/dl (32-36) Platelet Count 215 K/uL (130-400) Mean Platelet Volume 9.4 fL (7.4-10.4) Neutrophils (%) (Auto) 67.0 % Lymphocytes (%) (Auto) 16.2 % Monocytes (%) (Auto) 15.6 % Eosinophils (%) (Auto) 0.5 % Basophils (%) (Auto) 0.2 % Neutrophils # (Auto) 5.62 K/uL (1.4-6.5) Lymphocytes # (Auto) 1.36 K/uL (1.2-3.4) Monocytes # (Auto) 1.31 K/uL (0.11-0.59) Eosinophils # (Auto) 0.04 K/uL (0-0.5) Basophils # (Auto) 0.02 K/uL (0-0.2) RDW Standard Deviation 43.8 fL (36.4-46.3) RDW Coefficient of Variation 13.9 % (11.5-14.5) Immature Granulocyte % (Auto) 0.5 % Immature Granulocyte # (Auto) 0.04 K/uL (0.00-0.02) Anion Gap 10.0 mmol/L (3-11) Est Creatinine Clear Calc Drug Dose 47.1 ml/min Estimated GFR () 55.4 Estimated GFR (Non- 47.8 BUN/Creatinine Ratio 11.4 (10-20) Lactic Acid Level 1.7 mmol/L (0.4-2.0) Calcium Level 8.8 mg/dl (8.5-10.1) Total Bilirubin 1.4 mg/dl (0.2-1) Direct Bilirubin 0.3 mg/dl (0-0.2) Aspartate Amino Transf (AST/SGOT) 16 U/L (15-37) Alanine Aminotransferase (ALT/SGPT) 20 U/L (12-78) Alkaline Phosphatase 85 U/L (45-117) Total Protein 8.5 gm/dl (6.4-8.2) Albumin 3.6 gm/dl (3.4-5.0) Lipase 114 U/L (73-393) Laboratory results reviewed by me Medications Administered Medications (Trade) Dose Ordered Sig/Wily Route Start Time Stop Time Status Last Admin Dose Admin Sodium Chloride 1,000 ml @ 125 mls/hr Q8H STAT IV 05/08/18 19:58 05/09/18 03:57 05/08/18 20:28 125 MLS/HR Acetaminophen (Tylenol Tab) 1,000 mg NOW STAT PO 05/08/18 19:58 05/08/18 20:00 DC 05/08/18 20:30 1,000 MG ECG Per My Interpretation Indication: other (fever) Rate (beats per minute): 79 Rhythm: other (paced rhythm ) Findings: other (No ST elevation or depression, MS intervals 184, QRS duration 170, QT/QTc 400/458) ED Course 1950: The patient was evaluated in room A12B. A complete history and physical exam was performed. 1957: Tylenol 1000mg PO, Sodium Chloride 1000ml @ 125mls/hr IV 2018: Patient is resting comfortably. He states he has a history of kidney stones. His labs are within normal limits with the exception of a mildly elevated bilirubin level. His urine sample showed a trace amount of blood. Given his history of kidney stones, fever, and dysuria I am ordering a CT scan. His CXR came back negative for PNA. 2144: Vital signs are stable. Labs and imaging are within normal limits. No meningeal signs on exam. No leukocytosis or fevers in the hospital. The patient will be discharged and told to follow up with PCP. DISCHARGE - Plan of care discussed with patient and questions answered. The patient was given both verbal and printed discharge instructions. The patient verbalized understanding and ability to comply. The patient is to seek outpatient follow up as noted in the discharge instructions. The patient verbalized understanding and ability to comply. The patient is discharged in stable condition. The patient was instructed to return for worsening symptoms. Medical Decision Vital signs are stable. Labs and imaging are within normal limits. No meningeal signs on exam. No leukocytosis or fevers in the hospital. The patient will be discharged and told to follow up with PCP. DISCHARGE - Plan of care discussed with patient and questions answered. The patient was given both verbal and printed discharge instructions. The patient verbalized understanding and ability to comply. The patient is to seek outpatient follow up as noted in the discharge instructions. The patient verbalized understanding and ability to comply. The patient is discharged in stable condition. The patient was instructed to return for worsening symptoms. Medication Reconcilliation Current Medication List: was personally reviewed by me Blood Pressure Screening Patient's blood pressure: Normal blood pressure Impression Primary Impression: Fever Scribe Attestation The scribe's documentation has been prepared under my direction and personally reviewed by me in its entirety. I confirm that the note above accurately reflects all work, treatment, procedures, and medical decision making performed by me. The chart was completed utilizing [employer] voice recognition software. Grammatical errors, random word insertions, pronoun errors, and incomplete sentences are an occasional consequence of this system due to software limitations, ambient noise, and hardware issues. Any formal questions or concerns about the content, text, or information contained within the body of this dictation should be directly addressed to the physician for clarification. Departure Information Dispostion Home / Self-Care Referrals No Doctor, Assigned (PCP) Forms HOME CARE DOCUMENTATION FORM, IMPORTANT VISIT INFORMATION Patient Instructions Fever - [facility], [facility] Additional Instructions Return to emergency department if you develop fever greater 100.4 not resolved with Tylenol or Motrin, cough up blood, develop chest pain, develop severe headache, changes in vision, neck stiffness, or symptoms worsen/do not resolve. Problem Qualifiers Primary Impression: Fever Fever type: unspecified Qualified Codes: R50.9 - Fever, unspecified
--- NOTE | 2018-05-08 20:49 | DIAGNOSTIC IMAGING REPORT ---
CHEST 2 VIEWS ROUTINE CLINICAL HISTORY: Fever and cough COMPARISON STUDY: December 02, 2017 FINDINGS: There are postsurgical changes of a midline sternotomy. The heart is normal in size. There is an aortic valve prosthesis. There is a left subclavian dual-chamber central venous pacemaker. There is no failure. There is no focal pulmonary consolidation. There are no pleural effusions.[ IMPRESSION: No active disease in the chest. Electronically signed by: Art Loera M.D. 05/08/2018 8:48 PM Dictated Date/Time: 05/08/2018 8:47 PM
[2018-05-08 20:54] LABS: ALBUMIN 3.6 gm/dl (3.4-5.0); CALCIUM 8.8 mg/dl (8.5-10.1); CREATININE 1.4 mg/dl (0.60-1.40); POTASSIUM 3.6 mmol/L (3.5-5.1); TOTAL PROTEIN 8.5 gm/dl (6.4-8.2)
--- NOTE | 2018-05-08 22:05 | DIAGNOSTIC IMAGING REPORT ---
CT SCAN OF THE ABDOMEN AND PELVIS WITHOUT CONTRAST CLINICAL HISTORY: Kidney stones, suprapubic pain, dysuria, fever. COMPARISON STUDY: Renal ultrasound performed October 2016 TECHNIQUE: CT scan of the abdomen and pelvis was performed from the lung bases to the proximal femurs. Images are reviewed in the axial, sagittal, and coronal planes. IV contrast was not administered for this examination. A dose lowering technique was utilized adhering to the principles of ALARA. CT DOSE: 827.68 mGy.cm FINDINGS: Lower chest: There are coronary artery calcifications. There is aortic valve prosthesis. There are mild dependent atelectatic changes. Liver: The unenhanced liver is normal in size, contour, and attenuation. There is no intrahepatic biliary ductal dilatation. Gallbladder: Unremarkable. Spleen: Normal in size and attenuation. Pancreas: Unremarkable. Adrenal glands: No adrenal masses are visualized. Kidneys: There is a 7 mm lower pole right renal calculus. There is no hydronephrosis. There is minor perinephric stranding. No ureteral or bladder calculi are visualized. Bowel: There are no transition zones to indicate bowel obstruction. There are colonic diverticula present. There is no acute diverticulitis. There is no evidence of acute appendicitis. Peritoneum: There is no intraperitoneal free air or abdominal ascites. Vasculature: The abdominal aorta is normal in course and caliber. Adenopathy: None. Pelvic viscera: The bladder, and pelvic viscera are unremarkable. Skeletal structures: No destructive osseous lesions are seen. IMPRESSION: 1. Nonobstructing 7 mm lower pole right renal calculus 2. No evidence of hydronephrosis 3. No ureteral or bladder calculi identified 4. Diverticulosis. No evidence of acute diverticulitis 5. No evidence of acute appendicitis 6. No evidence of bowel obstruction. No evidence of free air. Electronically signed by: Art Loera M.D. 05/08/2018 10:04 PM Dictated Date/Time: 05/08/2018 9:59 PM
[2018-05-08 22:35] VITALS: BP 106/59; PULSE 64; TEMP 37; O2SAT 96
== END 2018-05-08 22:50 | disposition home or self-care (01) ==
LOC: C.EDB 19:46 → C.EDA 22:50
DX: R50.9 Fever, unspecified (principal); R11.10 Vomiting, unspecified; R19.7 Diarrhea, unspecified; R05 Cough; I10 Essential (primary) hypertension; E78.5 Hyperlipidemia, unspecified; I48.0 Paroxysmal atrial fibrillation; J45.909 Unspecified asthma, uncomplicated; Z79.01 Long term (current) use of anticoagulants; Z79.82 Long term (current) use of aspirin; Z79.899 Other long term (current) drug therapy; Z95.0 Presence of cardiac pacemaker; Z95.5 Presence of coronary angioplasty implant and graft

== ENCOUNTER → 2018-05-10 | Outpatient (CLI) | payer BC | END | disposition home or self-care (01) | LOC: C.LAB 12:43 | PROVIDERS: ATTEND Internal Medicine | DX: R35.0 Frequency of micturition (principal); R50.9 Fever, unspecified ==